=== PATIENT | female | born 1950 | race Caucasian/White ===

== ENCOUNTER 2018-11-24 09:34 | Day surgery (SDC) | payer MEDICARE ==
--- NOTE | 2018-11-19 13:52 | HP ---
PREOPERATIVE HISTORY AND PHYSICAL: DATE OF SURGERY/ADMISSION: 11/24/18 DATE OF OFFICE VISIT/ENCOUNTER: 11/11/18 ATTENDING SURGEON: Sigrid Spann MD* (dictated by MADELINE Sotomayor). PROCEDURE: Right long and ring trigger finger releases. HISTORY OF PRESENT ILLNESS: This is a 68-year-old female who complains of pain and triggering in her right long and ring fingers. This has been ongoing for over a year now. She has had 2 cortisone injections for each finger over time and the injections were helpful, but unfortunately the symptoms recurred each time. She has now consented to proceed with surgical intervention for this problem. PAST MEDICAL HISTORY: 1. Hypertension. 2. Depression/anxiety. 3. Fibromyalgia. PAST SURGICAL HISTORY: 1. Bilateral shoulder surgery. 2. Bilateral elbow lateral releases. 3. Bilateral carpal tunnel releases. 4. Bilateral thumb CMC arthroplasties. 5. Left total knee arthroplasty. 6. . 7. Left ankle surgery. CURRENT MEDICATIONS: 1. CBD oil. 2. Diltiazem 360 mg daily. 3. Duloxetine HCL 30 mg daily. 4. Lisinopril 20 mg daily. 5. Melatonin ER. 6. Multivitamin daily. 7. [place]-3. 8. Probiotic. 9. Sertraline HCl 100 mg daily. 10. Vitamin C. 11. Vitamin E. 12. Vitamin A and D. ALLERGIES: No known drug allergies. FAMILY MEDICAL HISTORY: Heart disease and hypertension. SOCIAL HISTORY: The patient is retired. No history of smoking. She does not use recreational drugs. She drinks alcohol on occasion. REVIEW OF SYSTEMS: Negative for general, cephalic, cardiovascular, respiratory GI, , other musculoskeletal, integumentary, endocrine, neurologic, and hematologic symptoms. Infectious disease: Negative for MRSA, hepatitis C, HIV. PHYSICAL EXAMINATION GENERAL: Well-developed, well-nourished, 68-year-old female in on acute distress. VITAL SIGNS: Height 5 feet 9 inches, weight 125 pounds, pulse rate 68, blood pressure 120/72. HEENT: Normocephalic, atraumatic. Pupils are equal, round, and reactive to light and accommodation. Extraocular movements are intact. Throat is clear. NECK: Supple. No palpable lymph nodes. PULMONARY: Lungs are clear to auscultation bilaterally. No wheezes, rales, or rhonchi. CARDIOVASCULAR: Regular rate and rhythm. S1, S2. No murmurs, rubs, or gallops. No edema. ABDOMEN: Positive bowel sounds, soft, and nontender. MUSCULOSKELETAL: On exam of her right hand, there is no visible swelling. She has tenderness to palpation at the A1 pulleys of both the long and ring fingers. She has difficulty making a full fist without pain. NEUROLOGICAL: Alert and oriented x3. Cranial nerves II through XII are intact. Sensation is intact to light touch. IMPRESSION: Trigger fingers, right long and ring fingers. PLAN: The patient is scheduled to undergo a right long and ring trigger finger releases with Dr. Sapnn on 11/24/18. She will return 10 days postop for followup and suture removal. A prescription for Tylenol with Codeine was e- scribed to the patient's pharmacy for postoperative pain management. MADELINE SOTOMAYOR [id number]/[facility] #: [id number] RON
[~2018-11-24 09:34] MED LIST: Buffered Lidocaine 1% SYRIN* 1 ML/SYRINGE INTRADERM ONE; Famotidine IV* 10 MG/ML 2 ML (20 mg) IV ONE; Lactated Ringers 1000 ML Bag* 1,000 ML IV SCH
[2018-11-24] MEDS ORDERED: Famotidine IV* 10 MG/ML 2 ML (20 mg) ONE (10:56)
[2018-11-24] MEDS ORDERED: Acetaminophen TAB* 325 MG PO PRN (11:25)
[2018-11-24] MEDS ORDERED: Midazolam* 1 MG/ML 5 ML VIAL (5 MG) ONE (11:40)
[2018-11-24] MEDS ORDERED: Lidocaine 2% PF * 5 ML VIAL ONE (12:22)
[2018-11-24] MEDS ORDERED: Ondansetron INJ* 2 MG/ML VIAL ONE (12:22)
[2018-11-24] MEDS ORDERED: Propofol* 10 MG/ML 20 ML BTL ONE (12:22)
[2018-11-24] MEDS ORDERED: Ketorolac INJ* 30 MG/ML 1 ML VIAL ONE (12:22)
[2018-11-24 13:05] VITALS: BP 122/66
[2018-11-24] MEDS ORDERED: Lidocaine 1% INJ* 10 MG/ML 30 ML SDV ONE (14:33)
--- NOTE | 2018-11-24 21:09 | OP ---
DATE OF OPERATION: 11/24/18 [facility] DATE OF : 54 SURGEON: Sigrid Spann MD. SET UP [employer]ACH[employer]ES: MADELINE Sotomayor. ANESTHESIA: Local MAC. PRE-OP DIAGNOSIS: Trigger fingers of the right long and ring fingers. POST-OP DIAGNOSIS: Trigger fingers of the right long and ring fingers. OPERATIVE PROCEDURE: Trigger finger release, right long and ring fingers. ESTIMATED BLOOD LOSS: Zero. TOURNIQUET TIME: About 10 minutes. INDICATIONS FOR PROCEDURE: Antonina is a 68-year-old female who has locking of the middle and ring fingers on her right hand. She presents for trigger finger releases. DESCRIPTION OF PROCEDURE: The patient was brought to the operating room, was given a sedation anesthetic and a local infiltration of 10 cc of 1% plain lidocaine in the palm of her right hand. The skin of her right hand and forearm was prepped and draped in the usual sterile fashion. The hand and forearm were exsanguinated and the tourniquet elevated to 250 mmHg. A transverse incision was made centered over the A1 steffany of the middle and ring fingers. We dissected bluntly down to the A1 pulleys. Johnathan rakes were used to retract the neurovascular bundles. Both A1 pulleys were incised longitudinally, completely releasing the flexor tendons which were in good condition with minimal tenosynovitis. This tenosynovitis was debrided. The wound was irrigated and the skin edges reapproximated with 4-0 nylon suture. The wound was dressed with Xeroform, 4x4, Webril, and an Sean wrap. The patient tolerated the procedure well and was brought to the recovery room in good condition. [id number]/[facility] #: [id number] [facility]
== END 2018-11-24 13:23 | disposition home or self-care (01) ==
LOC: OREAST 09:34
PROVIDERS: ATTEND Orthopaedic Surgery
DX: M65.331 Trigger finger, right middle finger (principal); M65.341 Trigger finger, right ring finger; I10 Essential (primary) hypertension; F41.9 Anxiety disorder, unspecified; F32.9 Major depressive disorder, single episode, unspecified; M79.7 Fibromyalgia
CPT/HCPCS: J1885; J2250; J2405; J2704

== ENCOUNTER 2019-03-11 13:46 | Emergency (ER) | payer MEDICARE ==
[2019-03-11 13:57] VITALS: BP 140/87
[2019-03-11] MEDS ORDERED: Ibuprofen TAB* 600 MG PO ONE (14:24)
--- NOTE | 2019-03-11 14:54 | UC ---
Lower Extremity/Ankle HPI - HPI Summary HPI Summary: 68 year old female with PMH for + OA L knee s/p TKA, S/P fusion L ankle for OA. Patient was climbing up ladder, slipped and fell approximately 6 feet onto ankle. + immediate swelling, pain in anterior knee, throughout ankle on L. minimal R ankle pain. patient was ambulatory afterwards, able to limp into house, elevated leg with ice for 45 minutes, but after no improvement came to . no back pain, no abdominal pains, no head injury, no LOC. - History of Current Complaint Chief Complaint: UCLowerExtremity Stated Complaint: ANKLE INJURY Time Seen by Provider: 03/11/19 14:04 Hx Obtained From: Patient ?: No Onset/Duration: Sudden Onset, Lasting Minutes Severity Initially: Severe Severity Currently: Severe Pain Intensity: 10 Pain Scale Used: 0-10 Numeric Aggravating Factor(s): Standing, Ambulation Alleviating Factor(s): Rest, Ice Able to Bear Weight: No - Allergies/Home Medications Allergies/Adverse Reactions: Allergies Allergy/AdvReac Type Severity Reaction Status Date / Time BANDAID Allergy REDDENED Uncoded 03/13/19 21:32 AREA PMH/Surg Hx/FS Hx/Imm Hx Previously Healthy: Yes - Surgical History Surgical History: Yes Surgery Procedure, Year, and Place: LEFT THUMB SURGERY. RIGHT THUMB SURGERY. LEFT CARPAL TUNNEL RELEASE. RIGHT CARPAL TUNNEL RELEASE. LEFT ELBOW SURGERY- "TENNIS ELBOW". RIGHT ELBOW SURGERY-"TENNIS ELBOW". LEFT ROTATOR CUFF REPAIR. RIGHT ROTATOR CUFF REPAIR X 2. 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 LEFT TOTAL KNEE REPLACMENT- 15 YEARS AGO. LEFT ANKLE SURGERY-2 YEARS AGO - Family History Known Family History: Positive: Non-Contributory - Social History Alcohol Use: Occasionally Substance Use Type: None Smoking Status (MU): Never Smoked Tobacco Have You Smoked in the Last Year: No Review of Systems All Other Systems Reviewed And Are Negative: Yes Constitutional: Positive: Negative Musculoskeletal: Positive: Arthralgia, Decreased ROM, Edema, Myalgia Neurological: Positive: Negative Is Patient Immunocompromised?: No Physical Exam Triage Information Reviewed: Yes Appearance: Well-Appearing, No Pain Distress, Well-Nourished Vital Signs: Initial Vital Signs Temp 98 F 03/11/19 13:50 Pulse 82 03/11/19 13:50 Resp 16 03/11/19 13:50 BP 140/87 03/11/19 13:50 Pulse Ox 100 03/11/19 13:50 Vital Signs Reviewed: Yes Eyes: Positive: Conjunctiva Clear Neck: Positive: Supple, Nontender, No Lymphadenopathy Respiratory: Positive: Chest non-tender, Lungs clear, Normal breath sounds, No respiratory distress, No accessory muscle use. Negative: Crackles, Rhonchi, Stridor, Wheezing Cardiovascular: Positive: RRR, No Murmur Musculoskeletal: Positive: Other: - Left ankle/ knee- TTP over med mal, mild over lat mal. + TTP over ankle, neg squeeze test. neg homans. TTP over tib plat both med/ laterally. no swelling, no lax with karl/ hernandez stressing, no patellar tenderness. no TTP throughout midfoot, no swelling. full ROM of all toes. cap refill <2. full PROM ankle, knee. Neurological Exam: Normal Neurological: Positive: Alert, Other: - SITLT distal to knee b/l Psychological Exam: Normal Skin: Positive: Other - mild ecchymosis over medial mal. Lower Extremity Course/Dx - Course Course Of Treatment: Radiograph: Patient Name: ROSELIA REBOLLEDO Medical Record#: [id number] Ordering Physician: Jihan CORREA Acct.#: [id number] : 1950 Age: 68 Sex: F Location: [facility] Exam Date: 03/11/191418 ADM Status: REG ER Order Information: KNEE LEFT 4+ VWS Accession Number: [id number] CPT: 69000 INDICATION: Left knee injury. TECHNIQUE: 4 views of the left knee were obtained. FINDINGS: The patient is status post total left knee replacement surgery. The bones and prostheses are in normal alignment. No joint effusion or fracture is seen. IMPRESSION: STATUS POST TOTAL LEFT KNEE REPLACEMENT SURGERY, NO EVIDENCE FOR FRACTURE. Patient Name: ROSELIA REBOLLEDO Medical Record#: [id number] Ordering Physician: Jihan CORREA Acct.#: [id number] : 1950 Age: 68 Sex: F Location: [facility] Exam Date: 03/11/191418 ADM Status: REG ER Order Information: ANKLE LEFT 3+VWS Accession Number: [id number] CPT: 03872 INDICATION: Left ankle injury. TECHNIQUE: 3 views of the left ankle were obtained. FINDINGS: There is diffuse soft tissue swelling which is most prominent adjacent to the medial malleolus. There is a small bony density adjacent to the medial malleolus suggestive of a small avulsion fracture fragment, age indeterminate although likely old. No other fractures are seen. Post surgical changes are noted in the calcaneus and medial cuneiform bones. There is mild to moderate osteoarthritic change in the talocrural joint. IMPRESSION: SOFT TISSUE SWELLING. THERE IS A SMALL BONY DENSITY ADJACENT TO THE MEDIAL MALLEOLUS CONSISTENT WITH AVULSION FRACTURE FRAGMENT AGE-INDETERMINATE ALTHOUGH LIKELY OLD. Patient Name: ROSELIA REBOLLEDO Medical Record#: [id number] Ordering Physician: Jihan CORREA Acct.#: [id number] : 1950 Age: 68 Sex: F Location: [facility] Exam Date: 03/11/191418 ADM Status: REG ER Order Information: SP LUMBAR AP/LAT 2-3 VIEWS Accession Number: [id number] CPT: 98799 INDICATION: Fall, back pain. COMPARISON: There are no relevant prior studies available for comparison. TECHNIQUE: 3 views of the lumbar spine were obtained including lateral, AP and a coned-down lateral view of the lumbar sacral junction. FINDINGS: There is mild grade 1 anterior spondylolisthesis at the L4-L5 and L5- S1 levels of approximately 5 to 6 mm. No fracture is seen. There is moderate diffuse degenerative disc disease. IMPRESSION: NO EVIDENCE FOR FRACTURE. Patient Name: ROSELIA REBOLLEDO Medical Record#: [id number] Ordering Physician: Jihan CORREA Acct.#: [id number] : 1950 Age: 68 Sex: F Location: [facility] Exam Date: 03/11/191418 ADM Status: REG ER Order Information: THORACIC SPINE 2 VWS Accession Number: [id number] CPT: 80470 INDICATION: Back injury. COMPARISON: There are no relevant prior studies available for comparison. TECHNIQUE: AP and lateral films of the dorsal spine were obtained. FINDINGS: The vertebra appear osteopenic. There is a mild dorsal scoliosis convex toward the right side. No acute fracture is seen. There is moderate to severe diffuse degenerative disc disease. IMPRESSION: NO EVIDENCE FOR ACUTE FRACTURE. - Differential Dx/Diagnosis Differential Diagnosis/HQI/PQRI: Contusion, Fracture (Closed), Fracture (Open), Sprain, Strain, Tendonitis Provider Diagnosis: Ankle fracture, left Discharge - Sign-Out/Discharge Documenting (check all that apply): Patient Departure All imaging exams completed and their final reports reviewed: Yes - Discharge Plan Condition: Good Disposition: HOME Prescriptions: HYDROcodone/ACETAMIN 5-325 MG* [[place] 5-325 TAB*] 1 tab PO Q4H PRN #5 tab MDD 5 PRN Reason: Pain - Severe Patient Education Materials: Ankle Fracture (ED), Walking Boot (ED) Referrals: Mavis Cosme MD [Primary Care Provider] - Nagi Saenz MD [Medical Doctor] - Additional Instructions: - Boot at all time, non-weight bearing/ toe touch for stability x 2-3 days, may increase after this if non-tender - Follow up with Dr. Saenz within 5-7 days - Tylenol as needed for pain, up to 4000mg a day - Percocet 5/325mg every 4-6 hours as needed for pain, minimize use, may use 1/ 2 tab - Rest, Ice, elevation as much as possible. - Billing Disposition and Condition Condition: GOOD Disposition: Home - Attestation Statements Provider Attestation: I was available for consult. This patient was seen by the MERARI. The patient was not presented to, seen by, or examined by me. Edmundo Renteria MD
== END 2019-03-11 15:30 | disposition home or self-care (01) ==
LOC: UCEAST 13:46
DX: S82.892A Other fracture of left lower leg, initial encounter for closed fracture (principal); W11.XXXA Fall on and from ladder, initial encounter; Y92.9 Unspecified place or not applicable; Z98.1 Arthrodesis status
CPT/HCPCS: 72070; 72100; 99212; A9270-GY; G0463

== ENCOUNTER 2019-03-13 20:28 | Emergency (ER) | payer MEDICARE ==
[2019-03-13 20:36] VITALS: BP 135/90
--- OUTSIDE RECORDS SUMMARY | 2019-03-13 20:46 | XMS REPORT | Continuity of Care Document ---
:1950 External Reference #:[id number] Author Name Medina Thornton M.D. (transmitted by agent of provider Greta Stokes) Address [address] [place] [address] Problems Active Problems Provider Date Localized, secondary osteoarthritis of the ankle Mannie Devlin MD Onset: and/or foot Sprain of ankle Medina Thornton M.D. Onset: 03/12/2019 Arthroplasty of knee Medina Thornton M.D. Onset: 03/12/2019 Social History Type Date Description Comments Sex Unknown ETOH Use Occasionally consumes alcohol Tobacco Use Start: Unknown Patient has never smoked Tobacco Use Start: Unknown Patient has never smoked Smoking Status Reviewed: 03/12/19 Patient has never smoked Exercise Type/Frequency Exercises regularly Allergies, Adverse Reactions, Alerts Description No Known Drug Allergies Medications Active Medications SIG Qnty Indications Ordering Provider Date Oxycodone-Acetaminoph 1-2 tabs by 60tabs M25.562 Medina Thornton M.D. 2018 en mouth every 12 5-325mg Tablets hours as needed for pain Lisinopril 1 by mouth every Unknown 20mg Tablets day Duloxetine HCL 3 tabs by mouth Unknown 30mg every day Caps DR Part Vitamin C 1 tab by mouth Unknown daily [place]-3 1 cap by mouth Unknown daily Multi-Day Vitamins 1 tab by mouth Unknown daily Melatonin ER 1 tab by mouth Unknown daily Diltiazem HCL 360 MG 1 cap by mouth Unknown daily History Medications Tylenol With 1 tab by mouth 15tabs Sigrid Spann, 11/19/2018 - Codeine #3 every 4-6 hours M.DXiao 12/02/2018 300-30mg as needed pain Tablets Tylenol With 1 tab by mouth 15tabs Sigrid Spann, 10/14/2018 - Unknown Codeine #3 every 4-6 hours M.D. 300-30mg as needed pain Tablets Medications Administered in Office Medication SIG Qnty Indications Ordering Provider Date Triamcinolone (Kenalog) Nagi Saenz M.D. 01/07/2019 Injection Triamcinolone (Kenalog) Mannie Devlin MD 07/21/2018 Injection Depomedrol 40MG Sigrid Spann M.D. 04/02/2018 Injection Depomedrol 40MG Sigrid Spann M.D. 08/27/2017 Injection Depomedrol 40MG Sigrid Spann M.D. 08/27/2017 Injection Depomedrol 40MG Sigrid Spann M.D. 08/27/2017 Injection Immunizations Description No Information Available Vital Signs Date Vital Result Comment 03/12/2019 10:58am Height 59 inches 4'11" Weight 115.00 lb Heart Rate 73 /min BP Systolic 120 mmHg BP Diastolic 58 mmHg Body Temperature 96.4 F Pain Level 8 BMI (Body Mass Index) 23.2 kg/m2 02/25/2019 9:20am Height 59 inches 4'11" Weight 119.00 lb BP Systolic 122 mmHg BP Diastolic 64 mmHg Respiratory Rate 14 /min Body Temperature 96.7 F Pain Level 7 BMI (Body Mass Index) 24.0 kg/m2 Results Description No Information Available Procedures Date Code Description Status 01/07/2019 08704 Inject/Drain Joint/Bursa Intermediate W/O US Completed 11/24/2018 15443 Trigger Finger Release Incision / Tendon Sheath Incision Completed 11/24/2018 57452 Trigger Finger Release Incision / Tendon Sheath Incision Completed 11/24/2018 99729 Trigger Finger Release Incision / Tendon Sheath Incision Completed 11/24/2018 29066 Trigger Finger Release Incision / Tendon Sheath Incision Completed Medical Devices Description No Information Available Encounters Type Date Location Provider Dx Diagnosis Office Visit 02/25/2019 Orthopedic Nagi Saenz M19.171 Post-traumatic 9:15a [facility] osteoarthritis, right ankle and foot M20.41 Other hammer toe(s) (acquired), right foot Office Visit 12/10/2018 Orthopedic Nagi M19.171 Post-traumatic 9:00a [facility] osteoarthritis, C.MXiaoA. right ankle and foot Office Visit 09/30/2018 Orthopedic Sigrid M65.341 Trigger finger, 2:30p [facility] right ring finger C.MMary M65.331 Trigger finger, right middle finger Assessments Date Code Description Provider 03/12/2019 M25.562 Pain in left knee Medina Thornton M.D. 03/12/2019 Z96.652 Presence of left artificial knee joint Medina Thornton M.D. 03/12/2019 M25.572 Pain in left ankle and joints of left foot Medina Thornton M.D. 03/12/2019 S93.402A Sprain of unspecified ligament of left Medina Thornton M.D. 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 and foot 02/25/2019 M20.41 Other hammer toe(s) (acquired), right foot Nagi Saenz M.D. 01/07/2019 M19.171 Post-traumatic osteoarthritis, right ankle Nagi Saenz M.D. and foot 12/24/2018 M65.331 Trigger finger, right middle finger Kassidy Bitting, [facility] 12/24/2018 M65.341 Trigger finger, right ring finger Kassidy Bitting, [facility] 12/24/2018 Z47.89 Encounter for other orthopedic aftercare Kassidy Cheri, [facility] 12/10/2018 M19.171 Post-traumatic osteoarthritis, right ankle Nagi Saenz M.D. and foot 12/03/2018 M65.331 Trigger finger, right middle finger Sigrid Spann M.D. 12/03/2018 M65.341 Trigger finger, right ring finger Sigrid Spann M.D. 12/03/2018 Z48.02 Encounter for removal of sutures Sigrid Spann M.D. 11/24/2018 M65.331 Trigger finger, right middle finger Sigrid Spann M.D. 11/24/2018 M65.331 Trigger finger, right middle finger Kassidy Bitting, [facility] 11/24/2018 M65.341 Trigger finger, right ring finger Sigrid Spann M.D. 11/24/2018 M65.341 Trigger finger, right ring finger Kassidy Bitting, [facility] 11/11/2018 M65.341 Trigger finger, right ring finger Kassidy Bitting, [facility] 11/11/2018 M65.331 Trigger finger, right middle finger Kassidy Bitting, [facility] 11/05/2018 M65.341 Trigger finger, right ring finger Sigrid Spann M.D. 11/05/2018 M65.331 Trigger finger, right middle finger Sigrid Spann M.D. 10/01/2018 M65.341 Trigger finger, right ring finger Sigrid Spann M.D. 10/01/2018 M65.331 Trigger finger, right middle finger Sigrid Spann M.D. 09/30/2018 M65.341 Trigger finger, right ring finger Sigrid Spann M.D. 09/30/2018 M65.331 Trigger finger, right middle finger Sigrid Spann M.D. Plan of Treatment Future Appointment(s):03/19/2019 1:30 pm - AR Newell at [facility].03/30/2019 10:30 am - Nagi Saenz M.D. at [facility].05/11/2019 11:30 am - Nagi Saenz M.D. at [facility].03/12/2019 - Medina Thornton M.D.M25.562 Pain in left kneeNew Medication:Oxycodone-Acetaminophen 5-325 mg - 1-2 tabs by mouth every 12 hours as needed for painFollow up:Follow up: 1 weekZ96.652 Presence of left artificial knee dfovmF85.572 Pain in left ankle and joints of left footS93.402A Sprain of unspecified ligament of left ankle, initial encounter Functional Status Description No Information Available Mental Status Description No Information Available Referrals Description No Information Available
--- NOTE | 2019-03-13 21:00 | UC ---
Knee Pain HPI - HPI Summary HPI Summary: Pt presents with c/o gradual onset left knee pain, swelling, fever, chills, generalized malaise and fatigue. Pt states that she had a total left knee replacement ~ 10 years ago and has "never been right". Pt states that she slipped off a ladder 2 days ago, was seen here, xrays of left foot and ankle, and low back all with negative results for fracture. - History of Current Complaint Chief Complaint: UCGeneralIllness Stated Complaint: FEVER Time Seen by Provider: 03/13/19 20:49 Hx Obtained From: Patient ?: No Onset/Duration: Gradual Onset, Lasting Days, Worse Since - osnet Severity Initially: Mild Severity Currently: Moderate Pain Intensity: 7 Character: Dull, Aching, Stiffness Aggravating Factor(s): Movement, Weight Bearing, Prolonged Standing Alleviating Factor(s): Nothing Associated Signs And Symptoms: Positive: Swelling, Fever Able to Bear Weight: No - painful - Risk Factors Septic Arthritis Risk Factor: Prosthesis Gout Risk Factor: Age ^ 42 - Allergies/Home Medications Allergies/Adverse Reactions: Allergies Allergy/AdvReac Type Severity Reaction Status Date / Time BANDAID Allergy REDDENED Uncoded 03/13/19 20:36 AREA PMH/Surg Hx/FS Hx/Imm Hx Previously Healthy: Yes Cardiovascular History: Hypertension - Surgical History Surgical History: Yes Surgery Procedure, Year, and Place: LEFT THUMB SURGERY. RIGHT THUMB SURGERY. LEFT CARPAL TUNNEL RELEASE. RIGHT CARPAL TUNNEL RELEASE. LEFT ELBOW SURGERY- "TENNIS ELBOW". RIGHT ELBOW SURGERY-"TENNIS ELBOW". LEFT ROTATOR CUFF REPAIR. RIGHT ROTATOR CUFF REPAIR X 2. 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 LEFT TOTAL KNEE REPLACMENT- 15 YEARS AGO. LEFT ANKLE SURGERY-2 YEARS AGO - Family History Known Family History: Positive: Non-Contributory - Social History Occupation: Retired Lives: With Family Alcohol Use: Occasionally Substance Use Type: None Smoking Status (MU): Never Smoked Tobacco Have You Smoked in the Last Year: No - Immunization History Vaccination Up to Date: Yes Review of Systems All Other Systems Reviewed And Are Negative: Yes Constitutional: Positive: Fever, Chills, Fatigue Skin: Positive: Negative Eyes: Positive: Negative ENT: Positive: Negative Respiratory: Positive: Negative Cardiovascular: Positive: Negative Gastrointestinal: Positive: Negative Genitourinary: Positive: Negative Motor: Positive: Decreased ROM - left knee Neurovascular: Positive: Negative Musculoskeletal: Positive: Arthralgia, Decreased ROM, Edema, Myalgia Neurological: Positive: Negative Psychological: Positive: Negative Is Patient Immunocompromised?: No Physical Exam Triage Information Reviewed: Yes Appearance: Ill-Appearing, Other: - pt is flushed Vital Signs: Initial Vital Signs Temp 99.8 F 03/13/19 20:29 Pulse 123 03/13/19 20:29 Resp 18 03/13/19 20:29 BP 135/90 03/13/19 20:29 Pulse Ox 98 03/13/19 20:29 Vital Signs Reviewed: Yes Eye Exam: Normal ENT: Positive: Hearing grossly normal Dental Exam: Normal Neck exam: Normal Respiratory Exam: Normal Respiratory: Positive: Normal breath sounds Cardiovascular: Positive: Tachycardia Musculoskeletal: Positive: ROM Limited @, Edema @ - left knee, slight swelling, left knee subjectively felt warmer than right knee Neurological Exam: Normal Psychological Exam: Normal Skin Exam: Other - mild erythema left knee Knee Pain Course/Dx - Course Course Of Treatment: I discussed my concern for infection in the left knee/prosthesis or from unknown origin. I discussed with the pt my recommendation [place] [facility] [place] Pt verbalized understanding and agreed to plan of care. Pt's daughter came and picked pt up and drove by private car [place] [facility] [place] - Differential Dx/Diagnosis Differential Diagnosis/HQI/PQRI: Infection Provider Diagnosis: Fever, unknown origin, Left knee pain Discharge - Sign-Out/Discharge Documenting (check all that apply): Patient Departure All imaging exams completed and their final reports reviewed: No Studies - Discharge Plan Condition: Stable Disposition: HOME-RECOMMEND TO ED Patient Education Materials: Fever in Adults (ED), Swollen Joint (ED) Referrals: Mavis Cosme MD [Primary Care Provider] - If Needed Additional Instructions: Please go directly to the closest emergency room for further evaluation and treatment. - Billing Disposition and Condition Condition: STABLE Disposition: Home-Recommend to ED
== END 2019-03-13 21:06 | disposition home health service (06) ==
LOC: UCEAST 20:28
DX: M25.562 Pain in left knee (principal); R50.9 Fever, unspecified; Z96.652 Presence of left artificial knee joint
CPT/HCPCS: 20605; 36415; 71045; 80053; 81003; 81015; 83605; 85025; 85610; 85730; 86140; 87040; 87070; 87077; 87086; 87186; 87205; 87476; 87640; 87641; 87798; 89051; 89060; 90471; 90732; 96361; 96365; 96375; 99212; 99284; A9270-GY; G0009; G0378; G0463; G8978-GP-CI; G8979-GP-CI; G8980-GP-CI; J1885; J1956; J2270; J2405

== ENCOUNTER 2019-03-13 21:28 | Observation (INO) | payer MEDICARE ==
--- NOTE | 2019-03-13 22:22 | ED ---
Lower Extremity - HPI Summary HPI Summary: This patient is a 68 year old female presenting to [facility] with a chief complaint of fever. The patient reports falling of a ladder on and was put in a boot for her left knee by [facility]. They did not find any fractures but believe she may have damaged ligaments and/or tendons. She is experiencing pain in her knee now and cannot move it as much as right after the accident due to the pain. She had a total replacement of the knee 10 years ago. She also reports pain and bruising of the ankle. She has two screws in her left ankle. She rates her pain 5/10 in severity. She has a temperature of 101 F in room. - History of Current Complaint Chief Complaint: EDExtremityLower Stated Complaint: FALL PER PT Time Seen by Provider: 03/13/19 22:14 Hx Obtained From: Patient Mechanism Of Injury: Fall From Height Of: - 6 ft Pain Intensity: 5 Pain Scale Used: 0-10 Numeric Associated Signs And Symptoms: Positive: Bruising, Fever - Allergies/Home Medications Allergies/Adverse Reactions: Allergies Allergy/AdvReac Type Severity Reaction Status Date / Time BANDAID Allergy REDDENED Uncoded 03/13/19 21:32 AREA PMH/Surg Hx/FS Hx/Imm Hx Cardiovascular History: Reports: Hx Hypertension Denies: Hx Pacemaker/ICD, Other Cardiovascular Problems/Disorders Respiratory History: Denies: Other Respiratory Problems/Disorders GI History: Denies: Other GI Disorders History: Reports: Hx Kidney Stones - HX OF ~10 YEARS AGO Denies: Other Problems/Disorders Musculoskeletal History: Reports: Hx Arthritis - THROUGHOUT Denies: Other Musculoskeletal History Comment Only: Hx Bursitis - LEFT KNEE-CURRENTLY- REPORTS S/P LEFT TOTAL KNEE 15 YEARS AGO Sensory History: Reports: Hx Cataracts - BILATERAL Denies: Hx Contacts or Glasses, Hx Hearing Aid Opthamlomology History: Reports: Hx Cataracts - BILATERAL Denies: Hx Contacts or Glasses Neurological History: Denies: Other Neuro Impairments/Disorders Psychiatric History: Reports: Hx Depression - ON MEDICATION FOR - Surgical History Surgery Procedure, Year, and Place: LEFT THUMB SURGERY. RIGHT THUMB SURGERY. LEFT CARPAL TUNNEL RELEASE. RIGHT CARPAL TUNNEL RELEASE. LEFT ELBOW SURGERY- "TENNIS ELBOW". RIGHT ELBOW SURGERY-"TENNIS ELBOW". LEFT ROTATOR CUFF REPAIR. RIGHT ROTATOR CUFF REPAIR X 2. 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 LEFT TOTAL KNEE REPLACMENT- 15 YEARS AGO. LEFT ANKLE SURGERY-2 YEARS AGO Hx Anesthesia Reactions: No Infectious Disease History: No Infectious Disease History: Denies: Traveled Outside the [place] in Last 30 Days - Family History Known Family History: Positive: Non-Contributory - Social History Alcohol Use: Occasionally Substance Use Type: Reports: None Smoking Status (MU): Never Smoked Tobacco Have You Smoked in the Last Year: No Review of Systems Positive: Fever Positive: Other - LLE pain Positive: Bruising All Other Systems Reviewed And Are Negative: Yes Physical Exam - Summary Physical Exam Summary: VITAL SIGNS: Reviewed. GENERAL: Patient is a well-developed and nourished FEMALE who is lying comfortable in the stretcher. Patient is not in any acute respiratory distress. HEAD AND FACE: No signs of trauma. No ecchymosis, hematomas or skull depressions. No sinus tenderness. EYES: PERRLA, EOMI x 2, No injected conjunctiva, no nystagmus. EARS: Hearing grossly intact. Ear canals and tympanic membranes are within normal limits. MOUTH: Oropharynx within normal limits. NECK: Supple, trachea is midline, no adenopathy, no JVD, no carotid bruit, no c- spine tenderness, neck with full ROM CHEST: Symmetric, no tenderness at palpation LUNGS: Clear to auscultation bilaterally. No wheezing or crackles. CVS: Regular rate and rhythm, S1 and S2 present, no murmurs or gallops appreciated. ABDOMEN: Soft, non-tender. No signs of distention. No rebound no guarding, and no masses palpated. Bowel sounds are normal. EXTREMITIES: FROM in all major joints, no edema, no cyanosis or clubbing. Swelling of the left knee. Decreased ROM mainly flexion because of pain. Swelling of LLE. NEURO: Alert and oriented x 3. No acute neurological deficits. Speech is normal and follows commands. SKIN: Dry and warm Triage Information Reviewed: Yes Vital Signs On Initial Exam: Initial Vitals Temp Pulse Resp BP Pulse Ox 101 F 104 16 148/81 94 03/13/19 21:29 03/13/19 21:29 03/13/19 21:29 03/13/19 21:29 03/13/19 21:29 Vital Signs Reviewed: Yes Procedures - Procedure Summary Procedure Summary: Arhtrocentesis: Verbal consent from the patient. Asceptic technic. Lidocaine 2% with epi for local anesthesia. Skin was prepped with iodine and the knee joint was entered medially and was able to aspirate 12 CC of bloody fluid. Diagnostics - Vital Signs Vital Signs Temp Pulse Resp BP Pulse Ox 03/13/19 21:29 101 F 104 16 148/81 94 - Laboratory Result Diagrams: 03/13/19 22:43 03/13/19 22:43 Lab Statement: Any lab studies that have been ordered have been reviewed, and results considered in the medical decision making process. - Radiology CXR Radiology Interpretation Completed By: ED Physician Summary of Radiographic Findings: No acute process. Pending official radiologist report. Left Knee XR Radiology Interpretation Completed By: ED Physician Summary of Radiographic Findings: No fracture seen, possible small effusion. Pending official radiologist report. - Ultrasound No standard instances Ultrasound Interpretation Completed By: Radiologist Summary of Ultrasound Findings: Venous Dopplar Study LLE: No acute findings. No evidence of DVT. ED Provider has reviewed this report. Lower Extremity Course/Dx - Course Course Of Treatment: This patient is a 68 year old female presenting to [facility] with a chief complaint of fever. The patient reports falling of a ladder on and was put in a boot for her left knee by [facility]. Urinalysis revealed results consistent with UTI. Arthrocentesis was performed on the left knee. The patient was still unable to ambulate on her left leg. Therefore, the patient will be admitted. Dr. Flanagan accepted the patient for admission. - Diagnoses Provider Diagnoses: Left lateral knee pain, UTI (urinary tract infection) Discharge - Sign-Out/Discharge Documenting (check all that apply): Patient Departure - Admission - Discharge Plan Condition: Stable Disposition: ADMITTED TO [facility] - Billing Disposition and Condition Condition: STABLE Disposition: Admitted to [facility] - Attestation Statements Document Initiated by Scribe: Yes Documenting Scribe: Nagi Tadeo Provider For Whom Andrew is Documenting (Include Credential): Lise Hale MD Scribrocio Attestation: Nagi Nassar, iggyed for Lise Hale MD on 03/15/19 at 0358. Scribe Documentation Reviewed: Yes Provider Attestation: The documentation as recorded by the Nagi middleton accurately reflects the service I personally performed and the decisions made by Ladan peraza MD Status of Scribe Document: Viewed
[2019-03-13] MEDS ORDERED: NS 0.9% 1000 ML** 1,000 ML IV.FLUID IV ONE (22:24)
[2019-03-13] MEDS ORDERED: Ondansetron INJ* 2 MG/ML VIAL IV ONE (22:25)
[2019-03-13] MEDS ORDERED: Acetaminophen TAB* 325 MG PO ONE (22:25)
[2019-03-13] MEDS ORDERED: Ketorolac INJ* 30 MG/ML 1 ML VIAL IV PUSH ONE (22:25)
[2019-03-13] MEDS ORDERED: Morphine 4 MG/ML VIAL (1 ml) 4 MG/ML VIAL IV ONE (22:25)
[2019-03-13 22:56] LABS: ABS Basophils 0.1 10^3/ul (0-0.2); ABS Lymphocytes 1.2 10^3/ul (1.0-4.8); ABS Monocytes 1.2 10^3/ul (0-0.8); ABS Neutrophils 6.1 10^3/ul (1.5-7.7); Eosinophil % 0.2 %; Hematocrit 37 % (35-47); Hemoglobin 12.7 g/dL (12.0-16.0); Lymphocyte % 14.3 %; Mean Corpuscular HGB Conc 34 g/dL (31-36); Mean Corpuscular Hemoglobin 30 pg (27-31); Mean Corpuscular Volume 89 fL (80-97); Mean Platelet Volume 7.3 fL (7.4-10.4); Platelet Count 242 10^3/uL (150-450); Red Blood Count 4.17 10^6 /uL (3.70-4.87); Red Cell Distribution Width 15 % (10-15); White Blood Count 8.7 10^3/uL (3.5-10.8)
[2019-03-13 23:04] LABS: Activated Partial Thrombo Time 33.5 seconds (26.0-38.0); INR 1.09 (0.82-1.09)
[2019-03-13 23:15] LABS: Albumin 4.2 g/dL (3.2-5.2); Albumin/Globulin Ratio 1.7 (1-3); BUN/Creatinine Ratio 21.1 (8-20); C Reactive Protein 119.79 mg/L (<8.01); Calcium 9.2 mg/dL (8.6-10.3); EGFR African American 128.4 (>60); EGFR Non-African American 106.1 (>60); Globulin 2.5 g/dL (2-4); Potassium 3.4 mmol/L (3.5-5.0); Total Bilirubin 0.7 mg/dL (0.2-1.0); Total Protein 6.7 g/dL (6.4-8.9)
[2019-03-13] MEDS ORDERED: Lidocaine 2% w/ EPI 1:200,000* 20 ML SDV VIAL ONE (23:54)
[2019-03-13] MEDS ORDERED: Lidocaine 2% w/ EPI 1:200,000* 20 ML SDV VIAL INJ ONE (23:56)
[2019-03-14 00:03] LABS: Urine Appearance Clear; Urine Bacteria Absent (Absent); Urine Bilirubin Negative (Negative); Urine Blood 1+ (Negative); Urine Color Yellow; Urine Glucose Negative (Negative); Urine Ketones Negative (Negative); Urine Nitrite Negative (Negative); Urine Protein Negative (Negative); Urine Red Blood Cell Trace(0-2/hpf) (Absent); Urine Specific Gravity 1.008 (1.010-1.030); Urine Squamous Epithelial Cell Present (Absent); Urine Urobilinogen Negative (Negative); Urine White Blood Cell 2+(11-20/hpf) (Absent)
[2019-03-14] MEDS ORDERED: Levofloxacin 500 MG IVPREMIX(* 500 MG/100 ML BAG IVPB ONE (00:14)
[2019-03-14 00:29] LABS: Body Fluid Source Synovial Fluid
[2019-03-14 01:25] LABS: Body Fluid Mono 2 %
[2019-03-14] MEDS ORDERED: Acetaminophen TAB* 325 MG PO PRN (02:26)
[2019-03-14] MEDS ORDERED: Morphine INJ* 2 MG/ML 1 ML SYRINGE (TWO MG - NEW SYRINGE VERSION) IV PRN (02:26)
[2019-03-14] MEDS ORDERED: oxyCODONE/Acetamin 5/325 MG* TAB PO PRN (02:26)
--- NOTE | 2019-03-14 04:37 | HP ---
CC: Dr. Mavis Cosme ADMISSION HISTORY AND PHYSICAL: DATE OF ADMISSION: 03/14/19 CHIEF COMPLAINT: Left knee pain and left ankle pain. HISTORY OF PRESENT ILLNESS: This is a 68-year-old female with a past medical history of hypertension and fibromyalgia who was in her usual state of health up until when she fell off a ladder. The patient denies any head injury. She stated that she fell mostly on her both feet, but most of he r fall was taken in by her left lower extremity. She had an urgent care visit, had images of both th e ankle and her knee and was sent home on a boot to the left leg and was seen by Dr. Thornton, who sugge sted not to put any weightbearing on that left leg. She noticed that over the last few days, her lef t knee and left ankle have swollen more and more, and her Beaufort that were prescribed to her were no l onger enough to control her pain and she also was noted to have a fever of 101 at home. So, she shaye jane decided to come to the ER for further evaluation. The patient otherwise offers no source of her fever such as cough, shortness of breath, or any chest pain. No urinary burning sensation, pain with urination, increased urination, or decreased urination . No GI symptoms such as nausea, vomiting, diarrhea, or constipation. No other abdominal pain. Her main symptom is just fever and the left knee and ankle swelling and severe worsening pain on both th e left knee and ankle, which is debilitating and was causing difficulty with her ambulation. The clarissa ent's further workup revealed the patient having hemiarthrosis on the left knee based on the fluid an alysis of the synovial fluid. PAST MEDICAL HISTORY: Includes hypertension and fibromyalgia. PAST SURGICAL HISTORY: Includes bilateral shoulder surgeries, bilateral elbow lateral releases, bila teral carpal tunnel releases, bilateral thumb CMC arthroplasties, left total knee arthroplasty, and l eft ankle surgery and right ring and long finger trigger finger releases done in November 2018, and hist ory of C- section. HOME MEDICATIONS: The patient is currently takin. Dwight-3 tablet daily. 2. Multivitamin 1 tablet daily. 3. Lisinopril 20 mg oral daily. 4. Beaufort 5/325 mg 1 tablet q.4 hours for pain. 5. Cymbalta 90 mg daily every morning. 6. Vitamin D3 1000 units oral every morning. 7. Diltiazem 360 mg oral daily every morning. ALLERGIES: No known drug allergies, although the patient did have reaction to Band- Aid once postope ratively, which was left too long. She thinks it was more irritation rather than true allergy. FAMILY HISTORY: There is a family history of hypertension and heart disease, but otherwise noncontri butory to her current condition. SOCIAL HISTORY: The patient is a retired business precision grinder and lives in a 3-bedroom house and has a ro mmate. Denies any other drug, alcohol, or smoking use, and is a full code. REVIEW OF SYSTEMS: A 14-point review of systems did not reveal any new information other than what i s stated in the HPI. PHYSICAL EXAMINATION GENERAL: The patient is awake, alert, and oriented x3. She does not appear to be in any acute respi ratory distress. VITAL SIGNS: In the ER, initial temperature on arrival was noted to be 101 degrees Fahrenheit, heart rate was 104, respiration rate 16, saturating 94% on room air. HEAD AND NECK: Atraumatic, normocephalic. Bilateral pupils are reactive. Oral mucosa was moist. N lay: Supple. No jugular venous distention. LUNGS: Clear to auscultation bilaterally. No wheezing, rhonchi, or rales. HEART: S1, S2. Regular rate and rhythm. ABDOMEN: Soft, nontender, nondistended. EXTREMITIES: The patient had minimal swelling on the left knee and ankle with decreased range of mot ion on the left knee and some bruising noted on the left ankle as well. Both the left knee and ankle were both tender to touch, but no real warmth was noted. DIAGNOSTIC STUDIES/LAB DATA: CBC was unremarkable. Coagulation profile unremarkable. Comprehensiv e metabolic panel shows minimally decreased potassium of 3.4, otherwise normal lactic acid. C-reacti ve protein was elevated at 119. Urinalysis shows 2+ leukocyte esterase, but negative for any nitrites . There was 1+ blood noted as well. Synovial fluid analysis shows elevated wbc of 7875 and elevated rbc of 348,000. Culture was still pending. Imaging evaluation: Chest x-rays did not reveal any obvious pneumonia. Both chest and knee x-rays are still pending an official radiology read. Venous Doppler was performed on the left lower extremity, did not show any evidence of a DVT. IMPRESSION AND PLAN: This is a 68-year-old female with left total knee arthroplasty and left ankle s urgery, here status post fall having left knee and ankle swelling with severe tenderness and difficul ty ambulating and also noted to have an incidental finding of fever. 1. Left knee swelling due to hemarthrosis. We will consult Orthopedics to evaluate the patient to s ee if the patient needs any revision versus any further drainage of the hemarthrosis. 2. Fever. Likely reactive from the patient's hemarthrosis rather than a real sepsis. The patient a lready received Levaquin. We will follow up the cultures of the both the synovial fluid and the urin e culture, and if the patient's fever occurs, we could consider starting her on antibiotics, but othe rwise we will watch and wait. 3. History of hypertension. Restart home medication. 4. History of fibromyalgia. Restart home medication. 5. DVT prophylaxis with sequential compression device on the right lower extremity only. No anticoa gulation with heparin or Lovenox due to her hemarthrosis and no SCDs on the left lower extremity due to her pain. [id number]/[facility] #: [id number]
[2019-03-14] MEDS ORDERED: Diltiazem CD CAP* 180 MG PO SCH (09:00)
[2019-03-14] MEDS ORDERED: Cholecalciferol TAB* 1000 UNITS PO SCH (09:00)
[2019-03-14] MEDS ORDERED: Pneumococcal *Vac Polyvalent 0.5 ML VIAL IM ONE (09:00)
[2019-03-14] MEDS ORDERED: OMEGA 300 MG PO SCH (09:00)
[2019-03-14] MEDS ORDERED: Prenatal Vitamin TAB PO SCH (09:00)
[2019-03-14] MEDS ORDERED: DULoxetine DR CAP* 30 MG CAP.DR PO SCH (09:00)
[2019-03-14] MEDS ORDERED: Lisinopril TAB* 10 MG PO SCH (09:00)
--- NOTE | 2019-03-14 10:52 | CONS ---
CONSULTATION REPORT: DATE OF CONSULT: 03/14/19 HISTORY OF PRESENT ILLNESS: Ms. Rooney is a 68-year-old vigorous female who has a significant generalized osteoarthritis. She had a left total knee previously, which has been doing well overall and a double fusion in her left hindfoot previously for some deformity. She fell off a ladder while trimming some trees on 03/14/19 and by her account, she fell 6 feet landing on her feet vertically. Her complaint on admission was the swollen left knee and pain at the ankle and knee with ambulation. She has been here overnight and feels much better. This morning she had her knee tapped and there was some effusion in the emergency room. MEDICATIONS: Ms. Rooney's medications are outlined in the chart. ALLERGIES: She has no known drug allergies. REVIEW OF SYSTEMS: She has negative review of systems. PHYSICAL EXAM: Her exam shows her to be lying in bed. She is alert, oriented, in no acute distress, actually minimal complaints this morning. She is able to move around in bed freely. Her left knee has a Band-Aid at the left parapatellar area where she had an aspirate. There is minimal effusion at the knee. She straightens the knee -10, flexes freely up to 100 degrees. There is no pain with the range of motion. No pain with medial or lateral stress. No pain in the hip area with piston, external rotation, internal rotation, flexion and extension to neutral. The ankle itself is not particularly swollen either. There is no ecchymosis. No break in the skin. She has a warm sensate foot, but there is tenderness at the medial malleolus, not severe but mild. DIAGNOSTIC STUDIES/LAB DATA: I reviewed her left knee films from admission. She has a well-positioned total knee arthroplasty. I do not see any loosening around the components. I do not see any subtle fracture line in either the distal femur or proximal tibia. The left ankle films from a couple of days previous, on the day of injury, did not show any significant fracture lines either. No shift in the ankle mortise either. IMPRESSION AND RECOMMENDATIONS: It is remarkable that Ms. Rooney fell by her account 6 feet and does not have any apparent injury other than contusion and a knee effusion. The effusion is suggestive of a subtle intraarticular soft tissue injury or potentially there is a small stress fracture. But as long as her pain improves and she is pain-free with range motion, then I think weightbearing would be safe. I would progress her activities as tolerated, but being cautious if any particular area seems to be painful, where further imaging could be provided. [id number]/[facility] #: [id number] MTDD
--- NOTE | 2019-03-14 11:16 | PN ---
Subjective Date of Service: 03/14/19 Interval History: Ms. Rooney is feeling better today. Pain improved significantly after knee aspiration last night. She was previously unable to bend the left knee and now does have active ROM, but still not baseline. She has not yet tried to ambulate. Denies CP, SOB, N/V. No concerns from nursing. Family History: Unchanged from Admission Social History: Unchanged from Admission Past Medical History: Unchanged from Admission Objective Active Medications: Acetaminophen (Tylenol Tab*) 650 mg PO Q4H PRN PAIN - MILD Cholecalciferol (Vitamin D Tab*) 1,000 units PO QAM ASAEL Diltiazem HCl (Cardizem Cd Cap*) 360 mg PO QAM ASAEL Duloxetine HCl (Cymbalta Cap*) 90 mg PO QAM ASAEL Lisinopril (Prinivil Tab*) 20 mg PO QAM ASAEL Morphine Sulfate (Morphine Inj (Syringe))*) 2 mg IV Q4H PRN PAIN - SEVERE Multivitamins ( Vitamin Tab*) 1 tab PO QAM ASAEL [place] Xl 300 Mg 300 mg PO QAM ASAEL Oxycodone/Acetaminophen (Percocet 5/325 Tab*) 1 tab PO Q4H PRN PAIN - MODERATE Vital Signs - 8 hr 03/14/19 03/14/19 03/14/19 03:29 03:59 04:00 Temperature 98.1 F Pulse Rate 72 64 78 Respiratory 17 Rate Blood Pressure 92/46 113/61 (mmHg) O2 Sat by Pulse 96 97 96 Oximetry 03/14/19 03/14/19 03/14/19 04:28 07:18 08:33 Temperature 98.3 F 98.4 F Pulse Rate 73 61 Respiratory 17 18 Rate Blood Pressure 100/60 96/50 125/68 (mmHg) O2 Sat by Pulse 97 99 Oximetry 03/14/19 08:35 Temperature Pulse Rate Respiratory Rate Blood Pressure (mmHg) O2 Sat by Pulse 99 Oximetry Oxygen Devices in Use Now: None Appearance: Middle-aged female laying in bed in NAD Eyes: No Scleral Icterus Ears/Nose/Mouth/Throat: Mucous Membranes Moist Neck: NL Appearance and Movements; NL JVP, Trachea Midline Respiratory: Symmetrical Chest Expansion and Respiratory Effort, Clear to Auscultation Cardiovascular: NL Sounds; No Murmurs; No JVD, RRR Abdominal: NL Sounds; No Tenderness; No Distention Extremities: - - Left knee mildly edematous with erythema, tender to palpation Neurological: Alert and Oriented x 3 Lines/Tubes/Other Access: Clean, Dry and Intact Peripheral IV Nutrition: Taking PO's Result Diagrams: 03/13/19 22:43 03/13/19 22:43 Assess/Plan/Problems-Billing Assessment: Ms. Rooney is a 68 yo F with PMH of HTN, fibromyalgia, L TKA, and L ankle surgery; who presented to the ED after a fall from a ladder and was found to have a left knee effusion with blood present. - Patient Problems (1) Hemarthrosis of knee, left Code(s): M25.062 - HEMARTHROSIS, LEFT KNEE Comment: - Secondary to mechanical fall from a ladder, approx 6 ft - Joint aspiration in ED remarkable for RBC - Tmax 101F on admission, reactive secondary to fall as there is no evidence of infection - Appreciate Ortho consult; recommends WBAT, but still concern that there may be a small stress fracture; will need further imaging if pain persists/worsens - Weight bearing as tolerated LLE - PT eval (2) Hypertension Code(s): I10 - ESSENTIAL (PRIMARY) HYPERTENSION Comment: - Normotensive, SBP 90-120s - Continue lisinopril, diltiazem (3) Fibromyalgia Code(s): M79.7 - FIBROMYALGIA Comment: - Continue Cymbalta, Percocet (4) DVT prophylaxis Code(s): Z29.9 - ENCOUNTER FOR PROPHYLACTIC MEASURES, UNSPECIFIED Comment: - SCD RLE only; chemical prophylaxis contraindicated in the setting of hemarthrosis (5) Full code status Code(s): Z78.9 - OTHER SPECIFIED HEALTH STATUS Comment: Status and Disposition: Observation. Anticipate d/c home when medically stable. Attending: Elizabeth Love
[2019-03-14] MEDS ORDERED: Potassium Chlor TAB* 20 MEQ TAB.ER PO ONE (11:23)
[2019-03-14 16:56] VITALS: BP 117/64
--- NOTE | 2019-03-14 21:57 | DS ---
CC: Dr. Mavis Cosme; Dr. Nagi Saenz * DISCHARGE SUMMARY: DATE OF ADMISSION: 03/14/19. DATE OF DISCHARGE: 03/14/19. PRIMARY CARE PROVIDER: Dr. Mavis Cosme. ATTENDING PHYSICIAN: Dr. Elizabeth Love * (dictated by Vandana Burleson NP) PRIMARY DIAGNOSIS: Left knee hemarthrosis secondary to trauma. SECONDARY DIAGNOSES: 1. Hypertension. 2. Fibromyalgia. STUDIES DONE WHILE IN THE HOSPITAL: 1. Chest x-ray on 03/13/19, reads as stigmata of obstructive lung disease. No traumatic injury or acute pulmonary or cardiac process evident. 2. Left knee x-ray on 03/13/19, reads as no evidence for periprosthetic fracture or prosthesis component loosening. Small joint effusion similar to the prior exam. Minimal anterior soft tissue swelling without change. 3. Left leg venous Doppler study on 03/13/19, reads as no acute findings. No evidence of deep vein thrombosis. HISTORY OF PRESENT ILLNESS AND HOSPITAL COURSE: Ms. Rooney is a 68-year-old female with past medical history of hypertension and fibromyalgia, who presented to the emergency room on 03/13/19, with complaints of left knee pain after a fall. Please see the history and physical by Dr. Flanagan for a complete summary of the events leading up to this hospitalization. In short, the patient was on a ladder at her home and had a mechanical fall, at which time she fell approximately 6 feet from the ladder and landed on her feet. She subsequently developed developed left knee and ankle pain. I will note that she does have a history of a left total knee arthroplasty and left ankle surgery. Because of the patient's pain and swelling, she became concerned and so presented to the emergency room. In the emergency room, the patient was noted to have normal vitals except for a temp of 101 degrees Fahrenheit. Lab work was unremarkable except for a CRP of 119. The emergency room physician did tap the left knee effusion, draining approximately 9 mL of fluid, which was bloody in appearance. Analysis of the fluid shows 7800 white blood cells and 348,000 red cells. This was neutrophil predominant. Because of the concern for hemarthrosis, the patient was admitted by the hospitalist service. The patient had an uneventful night. She reports that pain was significantly improved after the effusion was drained and range of movement is significantly improved today. She is able to actively bend her knee 90 degrees, though does have some stiffness and some discomfort with active range of motion. There is some tenderness to palpation on the medial and lateral left knee. There is mild nonpitting edema to that knee as well. The patient was seen this morning by Dr. Saenz from Orthopedics, who was concerned about a possibility of a small stress fracture, though noted that as long as the patient's pain improved , she would be safe weightbearing as tolerated. The patient was seen by physical therapy this morning, who noted that she was able to use crutches independently, though the physical therapist did not actually have the patient bear any weight on the legs. I did speak with the patient's nurse, who later this afternoon ambulated with the patient approximately 80 feet in the hallway. During that time, the patient did use crutches, though was able to bear a significant amount of weight on the left leg without experiencing severe pain or discomfort. I did speak with Dr. Saenz about this and he felt as though the patient would be stable for discharge home with appropriate followup. I will note that the patient did have a fever on admission, though has been afebrile since. I think that this fever was simply reactive from the patient's hemarthrosis and was not sales development representative of any infection, though the fluid culture from the effusion is pending at this point. I do have low suspicion for an infectious process. On exam, the patient has no focal neurological deficits. Her heart has a regular rate and rhythm without murmurs, rubs or gallops. Her lungs are clear to auscultation without rhonchi, wheezes, or rubs. Left knee has moderate nonpitting edema and is tender to palpation medially and laterally. There is no erythema or warmth over the site. Physical assessment is otherwise benign. Ms. Rooney is stable for discharge today. Vital signs are as follows: Temp 98.2, heart rate 77, respiratory rate 18, oxygen saturation 97% on room air, blood pressure 117/66. DISCHARGE MEDICATIONS: Continued medications: 1. Cholecalciferol 1000 units p.o. daily. 2. Diltiazem 260 mg p.o. daily. 3. Duloxetine 90 mg p.o. daily. 4. Lisinopril 20 mg p.o. daily. 5. Multivitamin 1 tab p.o. daily. 6. Hart-XL 300 mg p.o. daily. 7. [place] 5/325 one tab p.o. q.4 hours p.r.n. pain. DISCHARGE PLAN: Ms. Rooney will be discharged to home. Activity will be as tolerated. Again, she is weightbearing as tolerated per Orthopedics. She does have crutches to assist her in her mobility, though is able to ambulate independently, and so there is no concern about her returning home. Diet will be regular as tolerated. Medications are noted above. The patient can continue her usual medications and I have not made any changes. Regarding followup, the patient should call Dr. Saenz's office during the week. She should likely have a followup appointment to ensure resolution of the effusion. She should follow up with her primary care provider in the next week as well. She has been advised to return to the emergency room or nearest hospital for any worsening of symptoms, shortness of breath, lightheadedness, dizziness, chest discomfort, high fevers, chills, night sweats, loss of consciousness or any other worrisome signs or symptoms. DISCHARGE CONDITION: Stable. DISCHARGE DISPOSITION: Home. This is a summarized report of a complex medical history and hospital stay. For further details, please see the entire medical record. TIME SPENT: Approximately 50 minutes were spent on this discharge. VANDANA BURLESON, MARKET SPECIALIST [id number]/[facility] #: [id number] RON
[2019-03-17 00:02] LABS: B. garinii/B. afzellii PCR Negative (Negative); Lyme Disease Source SYNOVIAL FLUID
== END 2019-03-14 17:50 | disposition home or self-care (01) ==
LOC: ED 21:28 → MED 03-14 02:26
PROVIDERS: ADMIT Internal Medicine; ATTEND Internal Medicine
DX: S83.92XA Sprain of unspecified site of left knee, initial encounter (principal); W11.XXXA Fall on and from ladder, initial encounter; Y92.9 Unspecified place or not applicable; R50.9 Fever, unspecified; I10 Essential (primary) hypertension; M79.7 Fibromyalgia; Z79.899 Other long term (current) drug therapy; R60.0 Localized edema
CPT/HCPCS: 20605; 36415; 71045; 80053; 81003; 81015; 83605; 85025; 85610; 85730; 86140; 87040; 87070; 87077; 87086; 87186; 87205; 87476; 87640; 87641; 87798; 89051; 89060; 90471; 90732; 96361; 96365; 96375; 99284; A9270-GY; G0009; G0378; G8978-GP-CI; G8979-GP-CI; G8980-GP-CI; J1885; J1956; J2270; J2405

== ENCOUNTER 2019-08-30 09:11 | Day surgery (SDC) | payer MEDICARE ==
[~2019-08-30 09:11] MED LIST changes: +Acetaminophen TAB* 325 MG PO ONE; -Famotidine IV* 10 MG/ML 2 ML (20 mg) IV ONE
[2019-08-30] MEDS ORDERED: oxyCODONE TAB* 5 MG TAB PO PRN (09:50)
[2019-08-30] MEDS ORDERED: diPHENhydraMINE IV* 50 MG/ML 1 ml VIAL (BENADRYL) IV PRN (09:50)
[2019-08-30] MEDS ORDERED: Naloxone* 0.4 MG/ML 1 ML VIAL IV PRN (09:50)
[2019-08-30] MEDS ORDERED: Ondansetron INJ* 2 MG/ML VIAL IV PRN (09:50)
[2019-08-30] MEDS ORDERED: PROCHLORPERAZINE INJ 5 MG/ML 2 ML VIAL IV PRN (09:50)
[2019-08-30] MEDS ORDERED: HYDROmorphone INJ1* 1 MG/ML SYRINGE IV PRN (09:50)
[2019-08-30] MEDS ORDERED: Acetaminophen TAB* 325 MG ONE (10:05)
[2019-08-30] MEDS ORDERED: ceFAZolin 2 GM PREMIX in ORs 2 GM/50 ML BAG ONE (10:05)
[2019-08-30] MEDS ORDERED: Midazolam* 1 MG/ML 2 ML VIAL (2 MG) ONE (10:19)
[2019-08-30] MEDS ORDERED: fentaNYL* 50 MCG/ML 5 ML VIAL (250 MCG VIAL) ONE (10:19)
[2019-08-30] MEDS ORDERED: ROPIVACAINE 5 MG/ML 30 ML BTL (0.5%) ONE (10:49)
[2019-08-30] MEDS ORDERED: fentaNYL* 50 MCG/ML 2 ML VIAL (100 MCG VIAL) ONE (10:53)
[2019-08-30] MEDS ORDERED: Lidocaine 2% PF * 5 ML VIAL ONE ×2 (10:54→11:05)
[2019-08-30] MEDS ORDERED: Propofol* 500 MG/50 ML BTL ONE (10:54)
[2019-08-30] MEDS ORDERED: Bupivacaine 0.5%* 50 ML MDV VIAL ONE (11:05)
[2019-08-30 15:35] VITALS: BP 135/82
--- NOTE | 2019-08-30 22:53 | OP ---
DATE OF OPERATION: 08/30/19 - SDS DATE OF : 54 SURGEON: Nagi Saenz MD POWER TRUCK DRIVER: [place] PA-C PRE-OP DIAGNOSIS: Right subtalar arthrosis. POST-OP DIAGNOSIS: Right subtalar arthrosis. OPERATIVE PROCEDURE: Right subtalar fusion with tibial bone graft. DESCRIPTION OF PROCEDURE: The patient was taken to the operating room where a longitudinal incision was made obliquely across the sinus tarsi. We dissected the ligaments out of the sinus tarsi to allow the lamina veneer sample maker to open subtalar joint. We used a 4 mm power vero to prepare this subtalar joint and middle facet for arthrodesis. Proximally at Gerdy tubercle, a 3 cm oblique incision was made down to the periosteum which was split over the tubercle, which was opened with a 4 mm power vero. We harvested some cancellous graft from the proximal tibia metaphysis, replacing the defect with packed allograft cancellous chips. This periosteum was closed with 2-0 Vicryl, Monocryl for the skin in a subcuticular. This autograft was then placed in the subtalar joint as well as a few chips of the cancellous allograft fixation consisted of paired 6.5 mm cannulated screws from the heel up to the neck and body of the talus. Good fixation and compression was obtained. We then irrigated the plantar heel wound, closing with interrupted Prolene sutures, subcuticular Monocryl for the lateral wound and humberto for the skin. A compression dressing and plaster splint was applied. [id number]/[facility] #: [id number] [facility] HOSPITALCarlos
== END 2019-08-30 15:10 | disposition home or self-care (01) ==
LOC: OR 09:11
PROVIDERS: ATTEND Orthopaedic Surgery
DX: M19.171 Post-traumatic osteoarthritis, right ankle and foot (principal); I10 Essential (primary) hypertension; F41.8 Other specified anxiety disorders; M79.7 Fibromyalgia; G89.18 Other acute postprocedural pain
CPT/HCPCS: 76000; A9270-GY; C1713; C1776; J0690; J2250; J2704; J2795; J3010; J3490